=== PATIENT | female | born 1940 | race Asian ===

== ENCOUNTER → 2017-02-18 | Outpatient (CLI) | payer MEDICARE ==
[~2017-02-18] MED LIST: ESCI10TA10 PO; LABE100T3 PO; LOSA50TA2 PO; METO25TA35 PO; OMEG1CAP23 PO; OMNIPAQUE 350 MG/ML, 100ML BOTTLE ONE; PANT40TA5 PO; PRAV20TA2 PO; RIVA10TA PO
== END | disposition home or self-care (01) ==
LOC: CFH 02-13 14:22 → RAD 10:03
PROVIDERS: ATTEND Surgery Vascular Surgery
DX: I71.00 Dissection of unspecified site of aorta (principal)
CPT/HCPCS: 71275; 74174; Q9967